=== PATIENT | male | born 1960 | race Caucasian/White ===

== ENCOUNTER 2017-10-30 10:06 | Emergency (ER) | payer BC ==
[2017-10-30] MEDS: HYDROcodone/APAP 5/325MG 1 TAB TABLET PO (10:35)
[2017-10-30] MEDS: LIDOCAINE/EPI/TETRACAINE TOPICAL GEL 3 ML. TP (10:35)
[2017-10-30] MEDS: DIPHTH,PERTUSS(ACELL),TET TOX 0.5 ML DISP.SYRIN. VAX IM (11:00)
== END 2017-10-30 11:35 | disposition home or self-care (01) ==
LOC: ER 10:06
DX: S01.01XA Laceration without foreign body of scalp, initial encounter (principal); Z90.5 Acquired absence of kidney; W22.8XXA Striking against or struck by other objects, initial encounter; Y93.89 Activity, other specified; Y92.89 Other specified places as the place of occurrence of the external cause; Y99.8 Other external cause status
CPT/HCPCS: 12004; 70450; 90471; 90715; 99284

== ENCOUNTER 2017-10-30 16:31 | Emergency (ER) | payer BC ==
[~2017-10-30] VITALS: Ht 188 cm; Wt 108.9 kg
[~2017-10-30 16:31] MED LIST: CEPH-264 PO; HYDR-971 PO
[2017-10-30 17:03] VITALS: BP 170/97
--- NOTE | 2017-10-30 17:18 | PHYS DOC ---
Past Medical History Past Medical History: Cancer, Other Additional Past Medical Histor: PROSTATE CA Past Surgical History: Other Additional Past Surgical Histo: NEPHRECTOMY Alcohol Use: Occasionally Drug Use: None Adult General Chief Complaint Chief Complaint: WOUND CHECK HPI HPI Patient is a 57 year old male who presents with blood leaking from his stapled laceration. The patient presented to the emergency department earlier today with a large laceration to his head. He states that he was at home and had blood leaking from the wound. He presented to the emergency department to have the wound reevaluated. Review of Systems Review of Systems Constitutional: Denies fever or chills [] Respiratory: Denies cough or shortness of breath [] Cardiovascular: No additional information not addressed in HPI [] Musculoskeletal: Denies back pain or joint pain [] Integument: See history of present illness Neurologic: Denies headache, focal weakness or sensory changes [] Endocrine: Denies polyuria or polydipsia [] All other systems were reviewed and found to be within normal limits, except as documented in this note. Current Medications Current Medications Current Medications Medications (Trade) Dose Ordered Sig/Jori Start Time Stop Time Status Last Admin Dose Admin Lidocaine/ Epinephrine (LIDOCAINE 2%-EPI 1:100,000 multi-dose) 20 ml 1X ONCE 10/30/17 17:30 10/30/17 17:31 DC 10/30/17 17:27 20 ML Allergies Allergies Allergies Coded Allergies Type Severity Reaction Last Updated Verified No Known Drug Allergies 10/30/17 No Physical Exam Physical Exam Constitutional: Well developed, well nourished, no acute distress, non-toxic appearance. [] Cardiovascular:Heart rate regular rhythm, no murmur [] Lungs & Thorax: Bilateral breath sounds clear to auscultation [] Skin: oozing noted to stapled laceration Neurologic: Alert and oriented X 3, normal motor function, normal sensory function, no focal deficits noted. [] Psychologic: Affect normal, judgement normal, mood normal. [] Current Patient Data Vital Signs Vital Signs Date Time Temp Pulse Resp B/P (MAP) Pulse Ox O2 Delivery O2 Flow Rate FiO2 10/30/17 17:03 98.8 82 18 170/97 (121) 94 Room Air 98.8 EKG EKG [] Radiology/Procedures Radiology/Procedures [] Course & Med Decision Making Course & Med Decision Making Pertinent Labs and Imaging studies reviewed. (See chart for details) []After administration of Xylocaine, 6 more gordon were added to the laceration to reinforce the laceration. The patient tolerated the procedure well. Dragon Disclaimer Dragon Disclaimer This electronic medical record was generated, in whole or in part, using a voice recognition dictation system. Departure Departure Impression: Primary Impression: Laceration Disposition: 01 HOME, SELF-CARE Condition: STABLE Referrals: NO PCP (PCP) Patient Instructions: Staple Wound Closure, [id number] Additional Instructions: It is normal to have a small amount of bleeding from a head wound. Keep the dressing in place tonight. Wash your hair gently and let the warm soapy water wash over the laceration. ONIEL FINN APRN Oct 30, 2017 17:18
[2017-10-30] MEDS ORDERED: LIDOCAINE 2%/EPI 1:100,000 20 ML VIAL. IJ ONE (17:30)
== END 2017-10-30 18:13 | disposition home or self-care (01) ==
LOC: ER 16:31
DX: S01.01XD Laceration without foreign body of scalp, subsequent encounter (principal); Z90.5 Acquired absence of kidney; X58.XXXD Exposure to other specified factors, subsequent encounter
CPT/HCPCS: 12001; 96372; 99283; J3490

== ENCOUNTER 2017-11-10 11:52 | Emergency (ER) | payer BC ==
[~2017-11-10] VITALS: Ht 190.5 cm; Wt 111.1 kg
[2017-11-10 13:15] VITALS: BP 143/87
--- NOTE | 2017-11-10 13:15 | PHYS DOC ---
Past Medical History Past Medical History: Cancer, Other Additional Past Medical Histor: PROSTATE CA Past Surgical History: Other Additional Past Surgical Histo: NEPHRECTOMY Alcohol Use: Occasionally Drug Use: None Adult General Chief Complaint Chief Complaint: SUTURE/STAPLE REMOVAL [facility] HPI Patient is a 57 year old [f__sex] who presents with [] Review of Systems Review of Systems Constitutional: Denies fever or chills [] Eyes: Denies change in visual acuity, redness, or eye pain [] HENT: Denies nasal congestion or sore throat [] Respiratory: Denies cough or shortness of breath [] Cardiovascular: No additional information not addressed in HPI [] GI: Denies abdominal pain, nausea, vomiting, bloody stools or diarrhea [] : Denies dysuria or hematuria [] Musculoskeletal: Denies back pain or joint pain [] Integument: Denies rash or skin lesions [] Neurologic: Denies headache, focal weakness or sensory changes [] Endocrine: Denies polyuria or polydipsia [] All other systems were reviewed and found to be within normal limits, except as documented in this note. Allergies Allergies Allergies Coded Allergies Type Severity Reaction Last Updated Verified No Known Drug Allergies 10/30/17 No Physical Exam Physical Exam Constitutional: Well developed, well nourished, no acute distress, non-toxic appearance. [] HENT: Normocephalic, atraumatic, bilateral external ears normal, oropharynx moist, no oral exudates, nose normal. [] Eyes: PERRLA, EOMI, conjunctiva normal, no discharge. [] Neck: Normal range of motion, no tenderness, supple, no stridor. [] Cardiovascular:Heart rate regular rhythm, no murmur [] Lungs & Thorax: Bilateral breath sounds clear to auscultation [] Abdomen: Bowel sounds normal, soft, no tenderness, no masses, no pulsatile masses. [] Skin: Warm, dry, no erythema, no rash. [] Back: No tenderness, no CVA tenderness. [] Extremities: No tenderness, no cyanosis, no clubbing, ROM intact, no edema. [] Neurologic: Alert and oriented X 3, normal motor function, normal sensory function, no focal deficits noted. [] Psychologic: Affect normal, judgement normal, mood normal. [] EKG EKG [] Radiology/Procedures Radiology/Procedures [] Course & Med Decision Making Course & Med Decision Making Pertinent Labs and Imaging studies reviewed. (See chart for details) [] Dragon Disclaimer Dragon Disclaimer This electronic medical record was generated, in whole or in part, using a voice recognition dictation system. Departure Departure Impression: Primary Impression: Removal of gordon Disposition: HOME, SELF-CARE Condition: STABLE Referrals: NO PCP (PCP) Patient Instructions: Staple Removal, Care After Additional Instructions: Follow-up with your primary care provider for future healthcare needs. If worsening return to the emergency department. Chin you to very gently wash your hair until the scabs have fallen off and the laceration is completely healed ONIEL FINN APRN Nov 10, 2017 13:15
== END 2017-11-10 13:47 | disposition home or self-care (01) ==
LOC: ER 11:52
DX: S01.01XD Laceration without foreign body of scalp, subsequent encounter (principal); X58.XXXD Exposure to other specified factors, subsequent encounter
CPT/HCPCS: 99281

== ENCOUNTER 2017-11-21 11:13 | Emergency (ER) | payer BC ==
[~2017-11-21] VITALS: Ht 190.5 cm; Wt 111.1 kg
[2017-11-21 11:15] VITALS: BP 145/88
--- NOTE | 2017-11-21 12:45 | PHYS DOC ---
Past Medical History Past Medical History: Cancer, Other Additional Past Medical Histor: PROSTATE CA Past Surgical History: Other Additional Past Surgical Histo: NEPHRECTOMY Alcohol Use: Occasionally Drug Use: None Adult General Chief Complaint Chief Complaint: SUTURE/STAPLE REMOVAL HPI HPI Patient is a 57 year old male who presents to the emergency room with concerns of the retained staple after having gordon removed from scalp recently. Patient states he felt the top of his head this morning and there was a hard bump his said that there was a staple in his scalp. He denies any headache , drainage from the laceration site, redness, fever, or headache. He denies any pain at this time Review of Systems Review of Systems Constitutional: Denies fever or chills [] Integument: Denies rash, reports concerns of a retained staple after recent staple removal from the scalp Neurologic: Denies headache, focal weakness or sensory changes [] Allergies Allergies Allergies Coded Allergies Type Severity Reaction Last Updated Verified No Known Drug Allergies 10/30/17 No Physical Exam Physical Exam Constitutional: Well developed, well nourished, no acute distress, non-toxic appearance. [] HENT: Normocephalic, atraumatic, bilateral external ears normal, nose normal. [ ] Eyes: Normal Skin: Warm, dry, no erythema, no rash; Prior scalp laceration site free of erythema or drainage, healing scab present there is no staple present [] Neurologic: Alert and oriented X 3, normal motor function, normal sensory function, no focal deficits noted. [] Psychologic: Affect normal, judgement normal, mood normal. [] Current Patient Data Vital Signs Vital Signs Date Time Temp Pulse Resp B/P (MAP) Pulse Ox O2 Delivery O2 Flow Rate FiO2 11/21/17 11:15 98.7 85 18 145/88 (107) 92 Room Air 98.7 EKG EKG [] Radiology/Procedures Radiology/Procedures [] Course & Med Decision Making Course & Med Decision Making Pertinent Labs and Imaging studies reviewed. (See chart for details) Healing scalp laceration, no foreign body retained, Patient verbalized an understanding of home care, medications, follow-up, and return to ED instructions and was in agreement with the plan of care. Staff Physician Addendum: I was working in the ER during the course of this patient's visit. I was available for consultation as needed, but I was not directly involved in the care of this patient. [] Dragon Disclaimer Dragon Disclaimer This electronic medical record was generated, in whole or in part, using a voice recognition dictation system. Departure Departure Impression: Primary Impression: Laceration without foreign body of scalp, subsequent encounter Additional Impression: Encounter for wound re-check Referrals: NO PCP (PCP) Patient Instructions: Staple Removal, Care After Additional Instructions: Keep the wound area clean and dry, he may apply antibiotic ointment to the area as needed. Follow-up with your primary care doctor next week. Return to the emergency room if symptoms worsen. Problem Qualifiers SHAINA PACK GAMING TABLE OPERATOR Nov 21, 2017 12:45 CAMELIA OLIVERA MD Nov 22, 2017 18:28
== END 2017-11-21 12:47 | disposition home or self-care (01) ==
LOC: ER 11:13
DX: S01.01XD Laceration without foreign body of scalp, subsequent encounter (principal); Z90.5 Acquired absence of kidney; X58.XXXD Exposure to other specified factors, subsequent encounter
CPT/HCPCS: 99281

== ENCOUNTER → 2018-06-01 | Outpatient (CLI) | payer BC ==
[~2018-06-01] MED LIST changes: +HYDR-3164 PO; -HYDR-971 PO
--- NOTE | 2018-06-01 15:59 | KCIC ---
Testicular ultrasound 06/01/2018. No comparison available. CLINICAL INDICATION: Inguinal pain for one week. FINDINGS: Right testicle measures 4.1 x 2.9 x 2.47 cm. Left S2 measures 4.0 x 2.8 x 2.4 cm. No testicular mass. Normal color Doppler flow and waveforms to both testicles. There are small bilateral hydroceles, left greater than right. Small epididymal head cyst on the left measuring about 5 mm maximum dimension. No apparent inguinal hernia. IMPRESSION: 1. Normal sonographic appearance of the testicles. 2. Small bilateral hydroceles, left greater than right. Electronically signed by: Lino Stinson MD (06/01/2018 3:56 PM) [id number]
--- NOTE | 2018-06-01 16:00 | KCIC ---
Three-view left knee dated 06/01/2018. No comparison available. CLINICAL INDICATION: Knee pain and swelling for 3 months. FINDINGS: 3 views of left knee show normal bony alignment. No displaced fracture. No acute osseous or articular abnormality. Mild tricompartmental hypertrophic changes. No apparent joint effusion or loose body. IMPRESSION: 1. No acute radiographic abnormality. 2. Mild tricompartmental DJD. Electronically signed by: Lino Stinson MD (06/01/2018 3:57 PM) [id number]
== END | disposition home or self-care (01) ==
LOC: KCIC US 14:47
PROVIDERS: ATTEND Physician Assistant Medical
DX: M17.12 Unilateral primary osteoarthritis, left knee (principal); N43.3 Hydrocele, unspecified; R22.42 Localized swelling, mass and lump, left lower limb
CPT/HCPCS: 73562; 76870